=== PATIENT | female | born 1975 | race Caucasian/White ===

== ENCOUNTER 2018-02-21 08:51 | Outpatient (CLI) | payer OTHER ==
[2018-02-21 10:35] LABS: eGFR (Non-African) > 60
[2018-02-21 17:21] LABS: BASO % 0.5 % (0.0-1.5); EOS % 2.4 % (0.0-6.8); LYMPH ABS # 2.17 thou/uL (0.60-4.00); MCH. 30.9 pg (28.0-34.0); MONOCYTE % 5.1 % (0.0-11.0); MONOCYTE ABS # 0.33 thou/uL (0.00-0.90); PLATELET COUNT 224 thou/uL (130-400)
== END 2018-02-21 08:52 ==
LOC: LAB 08:51
PROVIDERS: ATTEND Physician Assistant
DX: R53.83 Other fatigue (principal)
CPT/HCPCS: 36415; 80053; 82652; 84439; 84443; 84481; 85025